=== PATIENT | male | born 1990 | race Caucasian/White ===

== ENCOUNTER 2018-04-29 22:52 | Emergency (ER) | payer MEDICAID, OTHER ==
[~2018-04-29] VITALS: Ht 170.2 cm; Wt 104.3 kg
[2018-04-29 23:01] VITALS: Ht 170.2 cm; Wt 104.3 kg
[2018-04-29 23:32] LABS: BASOPHIL % 0.8 % (0-2); PLATELET COUNT 228 x10^3mcL (130-400)
[2018-04-29 23:43] LABS: CARBON DIOXIDE 27.4 mmol/L (21-32); CHLORIDE SERUM 105 mmol/L (98-107); CREATININE SERUM 1.1 mg/dL (0.7-1.3); GFR1 > 60 mL/min; GLUCOSE SERUM 88 mg/dL (74-106); POTASSIUM SERUM 4.1 mmol/L (3.5-5.1); SODIUM SERUM 141 mmol/L (136-145)
[2018-04-29 23:48] LABS: ALBUMIN 3.9 g/dL (3.4-5.0); ALKALINE PHOSPHATASE 86 U/L (46-116); ALT/SGPT 184 U/L (16-63); AMYLASE 42 U/L (25-115); AST/SGOT 104 U/L (15-37); BILIRUBIN TOTAL 1.02 mg/dL (0.20-1.00); LIPASE 168 IU/L (73-393); TOTAL PROTEIN, SERUM 7.9 g/dL (6.4-8.2)
[2018-04-30 00:55] VITALS: BP 132/82
== END 2018-04-30 00:55 | disposition home or self-care (01) ==
LOC: ED 22:52
PROVIDERS: Emergency Medicine
DX: K52.9 Noninfective gastroenteritis and colitis, unspecified (principal); F20.9 Schizophrenia, unspecified
CPT/HCPCS: 83880; C9113; J1200; J2405; J2765; J7030